=== PATIENT | male | born 1985 | race Caucasian/White ===

== ENCOUNTER 2021-07-18 08:51 | Emergency (ER) | payer OTHER ==
[~2021-07-18] VITALS: Ht 180 cm; Wt 92.9 kg
[2021-07-18 09:13] LABS: BASOPHILS # (AUTO) 0.1 10^3/uL (0.0-0.1); BASOPHILS % (AUTO) 1 % (0-10); EOSINOPHILS # (AUTO) 0.1 10^3/uL (0.0-0.3); EOSINOPHILS % (AUTO) 2 % (0-10); HEMATOCRIT 43 % (40-54); HEMOGLOBIN 14.4 g/dL (13.3-17.7); LYMPHOCYTES # (AUTO) 2.2 10^3/uL (1.0-4.0); LYMPHOCYTES % (AUTO) 31 % (12-44); MEAN CORPUSCULAR HEMOGLOBIN 29 pg (25-34); MEAN CORPUSCULAR HGB CONC 34 g/dL (32-36); MEAN CORPUSCULAR VOLUME 86 fL (80-99); MEAN PLATELET VOLUME 9.2 fL (9.0-12.2); MONOCYTES # (AUTO) 0.5 10^3/uL (0.0-1.0); MONOCYTES % (AUTO) 7 % (0-12); NEUTROPHILS # (AUTO) 4.2 10^3/uL (1.8-7.8); NEUTROPHILS % (AUTO) 59 % (42-75); PLATELET COUNT 229 10^3/uL (130-400); WHITE BLOOD COUNT 7.1 10^3/uL (4.3-11.0)
[2021-07-18] MEDS ORDERED: LIDOCAINE 1% INJ 50 ML (XYLOCAINE) VIAL IJ ONE (09:15)
[2021-07-18] MEDS ORDERED: TETANUS,DIPTH,PERTUSS P/F (BOOSTRIX) 0.5 ML VIAL IM ONE (09:15)
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
[2021-07-18] MEDS ORDERED: KETOROLAC 30 MG/ML VIAL IVP ONE (09:45)
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
[2021-07-18] MEDS ORDERED: ONDA4TAB11 PO (10:53)
[2021-07-18 11:06] VITALS: BP 117/72
== END 2021-07-18 11:06 | disposition home or self-care (01) ==
LOC: ER 08:52
DX: S06.0X9A Concussion with loss of consciousness of unspecified duration, initial encounter (principal); S51.011A Laceration without foreign body of right elbow, initial encounter; S80.02XA Contusion of left knee, initial encounter; S50.812A Abrasion of left forearm, initial encounter; S80.812A Abrasion, left lower leg, initial encounter; Z23 Encounter for immunization; V89.2XXA Person injured in unspecified motor-vehicle accident, traffic, initial encounter
CPT/HCPCS: 36415; 71045; 73080; 73562; 85025; 90715